=== PATIENT | male | born 1945 | race Caucasian/White ===

== ENCOUNTER 2016-12-21 18:06 | Emergency (ER) | payer MEDICARE, BC ==
[~2016-12-21] VITALS: Ht 180.3 cm; Wt 65.0 kg
[~2016-12-21 18:06] MED LIST: CYMB60CA PO; DIOV160T3 PO; JANU50TA9 PO; LANTUSP SQ; STOO100C PO; TYLE3 PO; VYTO10TA35 PO; [UNRECOGNIZED DRUG - OTHER]
[2016-12-21 18:08] VITALS: BP 137/85; PULSE 104; RESP 16; TEMP 97.4; O2SAT 99
[2016-12-21] MEDS ORDERED: SODIUM CHLOR 0.9% 1000 ML INJ 1,000 ML IV SCH (19:19)
[2016-12-21] MEDS ORDERED: SODIUM CHLORIDE 0.9% FLUSH 5 ML FLUSH IVF PRN (19:30)
[2016-12-21] MEDS ORDERED: ONDANSETRON HCL 4 MG/2 ML VIAL IVP ONE (19:30)
[2016-12-21] MEDS ORDERED: MORPHINE SULFATE 4 MG/ML INJ IV PUSH ONE (19:30)
--- NOTE | 2016-12-21 19:30 | PD ---
HPI . Abdominal pain Chief Complaint: GI Complaint Time Seen by Provider: 19:19 Travel History International Travel<30 days: No Contact w/Intl Traveler<30days: No Traveled to known affect area: No History of Present Illness HPI Patient presents with acute exacerbation of chronic abdominal pain. He reports that he's been having abdominal pain for 7 years. This been worse for the last couple days. He reports the passage of lack and or bloody stools. Last couple days. He denies any vomiting or fever. He does admit to decreased appetite. He further reports that his dose has been too high to register. He is a diabetic on insulin. He also reports polyuria and polydipsia. The patient underwent colostomy because of chronic anal pain and spasm. He reports continued anal pain and spasm despite surgery. [id number]: Diffuse abdomen SEVERITY: 10 out of 10 DURATION: Ongoing for 7 years TIMING: Worse 2 days CONTEXT: Chronic colostomy ASSOCIATED SYMPTOMS: Hyperglycemia PFSH Past Medical History Blood Disorders: No Cancer: No Cardiovascular Problems: Yes High Cholesterol: Yes Diabetes: Yes Diminished Hearing: No Endocrine: Yes Genitourinary: No Hypertension: Yes Immune Disorder: No Implanted Vascular Access Dvce: No Kidney Stones: Yes Musculoskeletal: No Neurologic: No Psychiatric: No Reproductive: No Respiratory: No Integumentary: Yes (GI Bleeding; Frequent UTI's) Renal Failure: Yes PNEUMOCCOCAL Vaccine (Year): 2 Past Surgical History Abdominal Surgery: Yes (colostomy due to abd pain AND HERNIA REPAIR) Genitourinary Surgery: Yes (LITHOTRIPSY) Tonsillectomy: Yes Other Surgery: Yes Social History Alcohol Use: Yes (OCCASIONALLY) Tobacco Use: Yes (1 PACK A DAY) Substance Use: No Allergies-Medications (Allergen,Severity, Reaction): Coded Allergies: No Known Allergies (Verified , 11/10/14) Reported Meds & Prescriptions Reported Meds & Active Scripts Active Reported Cymbalta DR (Duloxetine HCl) 60 Mg Capdr 60 Mg PO DAILY Lantus Inj (Insulin Glargine) 1,000 Unit/10 Ml Vial 40 Units SQ BID Review of Systems Except as stated in HPI: all other systems reviewed are Neg General / Constitutional: No: Fever, Chills Cardiovascular: No: Chest Pain or Discomfort Respiratory: No: Shortness of Breath Gastrointestinal: Positive: Abdominal Pain, Hematochezia, Other (white stools) , No: Nausea, Vomiting, Diarrhea Endocrine: Positive: Polyuria, Polydipsia Physical Exam Narrative GENERAL: Thin, chronically ill-appearing, very amaya man. SKIN: Warm and dry. Good turgor. HEAD: Atraumatic. Normocephalic. EYES: Pupils equal and round. Extraocular movements are intact. ENT: No nasal bleeding or discharge. Mucous membranes pink and moist. NECK: Trachea midline. Neck is supple. CARDIOVASCULAR: Regular rate and rhythm. Heart sounds are normal. RESPIRATORY: No accessory muscle use. Lungs are clear with full air movement throughout. GASTROINTESTINAL: Abdomen soft, non-tender, nondistended. Colostomy bag in place. Scant brown stool from the stoma. Some irritation of the stoma. It does Hemoccult positive but it is unclear if this is because of stomal irritation or from the stool itself. MUSCULOSKELETAL: No obvious deformities. No edema. NEUROLOGICAL: Awake and alert. No obvious cranial nerve deficits. Motor grossly within normal limits. Normal speech. PSYCHIATRIC: Appropriate mood and affect; insight and judgment normal. Data Data Last Documented VS Vital Signs Date Time Temp Pulse Resp B/P Pulse Ox O2 Delivery O2 Flow Rate FiO2 12/21/16 21:00 18 98 Room Air 12/21/16 18:08 97.4 104 137/85 Orders Complete Blood Count With Diff (12/21/16 19:19) Comprehensive Metabolic Panel (12/21/16 19:19) Lipase (12/21/16 19:19) Lactic Acid (12/21/16 19:19) Prothrombin Time / Inr (Pt) (12/21/16 19:19) Act Partial Throm Time (Ptt) (12/21/16 19:19) Urinalysis - C+S If Indicated (12/21/16 19:19) Iv Access Insert/Monitor (12/21/16 19:19) Ecg Monitoring (12/21/16 19:19) Oximetry (12/21/16 19:19) Morphine Inj (Morphine Inj) (12/21/16 19:30) Ondansetron Inj (Zofran Inj) (12/21/16 19:30) Sodium Chlor 0.9% 1000 Ml Inj (Ns 1000 M (12/21/16 19:19) Sodium Chloride 0.9% Flush (Ns Flush) (12/21/16 19:30) Electrocardiogram (12/21/16 19:19) Oral Contrast - Adult (12/21/16 19:26) Insulin Human Regular Inj (Novolin R Inj (12/21/16 22:00) Diatrizoate Liq ( Gastrodavid Liq) (12/21/16 23:59) Ct Abd/Pel W Iv Contrast(Rout) (12/22/16 ) Iodixanol 320 Inj (Rad Ct) (Visipaque 32 (12/22/16 02:10) Labs Laboratory Tests Test 12/21/16 12/21/16 19:20 19:30 White Blood Count 8.5 TH/MM3 Red Blood Count 5.22 MIL/MM3 Hemoglobin 16.3 GM/DL Hematocrit 46.9 % Mean Corpuscular Volume 89.9 FL Mean Corpuscular Hemoglobin 31.2 PG Mean Corpuscular Hemoglobin 34.7 % Concent Red Cell Distribution Width 13.1 % Platelet Count 233 TH/MM3 Mean Platelet Volume 9.2 FL Neutrophils (%) (Auto) 75.7 % Lymphocytes (%) (Auto) 16.3 % Monocytes (%) (Auto) 6.5 % Eosinophils (%) (Auto) 0.9 % Basophils (%) (Auto) 0.6 % Neutrophils # (Auto) 6.4 TH/MM3 Lymphocytes # (Auto) 1.4 TH/MM3 Monocytes # (Auto) 0.5 TH/MM3 Eosinophils # (Auto) 0.1 TH/MM3 Basophils # (Auto) 0.1 TH/MM3 CBC Comment DIFF FINAL Differential Comment Prothrombin Time 10.0 SEC Prothromb Time International 0.9 RATIO Ratio Activated Partial 27.1 SEC Thromboplast Time Sodium Level 132 MEQ/L Potassium Level 4.2 MEQ/L Chloride Level 92 MEQ/L Carbon Dioxide Level 27.9 MEQ/L Anion Gap 12 MEQ/L Blood Urea Nitrogen 37 MG/DL Creatinine 1.70 MG/DL Estimat Glomerular Filtration 40 ML/MIN Rate Random Glucose 537 MG/DL Calcium Level 9.3 MG/DL Total Bilirubin 0.4 MG/DL Aspartate Amino Transf 24 U/L (AST/SGOT) Alanine Aminotransferase 31 U/L (ALT/SGPT) Alkaline Phosphatase 111 U/L Total Protein 7.6 GM/DL Albumin 4.2 GM/DL Lipase 635 U/L Urine Color LIGHT-YELLOW Urine Turbidity CLEAR Urine pH 5.0 Urine Specific [place] 1.023 Urine Protein 30 mg/dL Urine Glucose (UA) 1000 mg/dL Urine Ketones NEG mg/dL Urine Occult Blood NEG Urine Nitrite NEG Urine Bilirubin NEG Urine Urobilinogen LESS THAN 2.0 MG/DL Urine Leukocyte Esterase NEG Urine RBC LESS THAN 1 /hpf Microscopic Urinalysis Comment CULT NOT INDICATED Lactic Acid Level 1.2 mmol/L MDM Medical Decision Making Medical Screen Exam Complete: Yes Emergency Medical Condition: Yes Medical Record Reviewed: Yes (patient actually hasn't been here a couple of years. Medical history significant for COPD, diabetes, hypertension, hyperlipidemia and chronic anal pain and spasm and colostomy) Interpretation(s) EKG shows a sinus rhythm. No ST segment elevation or depression. Differential Diagnosis Differential diagnosis of abdominal pain includes but is not limited to gastritis, pancreatitis, hepatitis, gastroenteritis, gallbladder disease, constipation, urinary retention, UTI, peptic ulcer disease, diverticulitis or appendicitis Narrative Course Patient presents complaining with abdominal pain and black or bloody stools for the last several days. He appears hemodynamically stable at this time. He also reports hyperglycemia. CBC & BMP Diagram 12/21/16 19:20 Liver function studies are normal. Lipase is 635. Lactic acid is 1.2. UA is positive for glucose. No evidence of infection. Last Impressions Abdomen/Pelvis CT 12/22/16 0000 Signed Impressions: Service Date/Time: December 01:36 - CONCLUSION: 1. 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 The parastomal hernia is new when compared to the prior study of 2010. 2. Calcifications in the region of the pancreatic duct. 3. Nonobstructing renal calculi. 4. No evidence of bowel dilatation. 5. Enlarged prostate. 6. Degenerative findings lumbar spine. Roel Pleitez MD I'm not really finding anything acutely wrong with this patient. He has been resting comfortably while awaiting his workup. I really don't think that he needs hospital admission at this time. Diagnosis Primary Impression: Pancreatitis Qualified Code: K85.90 - Acute pancreatitis, unspecified complication status, unspecified pancreatitis type Additional Impression: Hyperglycemia Patient Instructions: Colostomy Care (DC), Diabetic Hyperglycemia (DC), General Instructions Disposition: 01 DISCHARGE HOME Condition: Stable Yessica Almonte MD Dec 21, 2016 19:30
[2016-12-21] MEDS ORDERED: LANTUS2P SQ (19:47)
[2016-12-21] MEDS ORDERED: CYMB60CA PO (19:49)
[2016-12-21 19:58] LABS: BLOOD, URINE NEG (NEG); GLUCOSE,URINE 1000 mg/dL (NEG); KETONE, URINE NEG (NEG); NITRITE,URINE NEG (NEG); URINE COLOR LIGHT-YELLOW (YELLW/STRAW)
[2016-12-21 20:03] LABS: COMMENT (UR) CULT NOT INDICATED; CULTURE IF INDICATED CULT NOT INDICATED
[2016-12-21 21:00] VITALS: RESP 18; O2SAT 98
[2016-12-21 21:11] LABS: AUTOMATED NEUTROPHIL # 6.4 TH/MM3 (1.8-7.7); BASOPHIL # 0.1 TH/MM3 (0-0.2); BASOPHIL % 0.6 % (0.0-2.0); EOSINOPHIL # 0.1 TH/MM3 (0-0.4); EOSINOPHIL % 0.9 % (0.0-4.0); HEMATOCRIT 46.9 % (39.0-51.0); HEMO FLAGS DIFF FINAL; LYMPH % 16.3 % (9.0-44.0); LYMPHOCYTE # 1.4 TH/MM3 (1.0-4.8); MEAN CELL VOLUME 89.9 FL (80.0-100.0); MEAN CORPUSCULAR HEMOGLOBIN 31.2 PG (27.0-34.0); MEAN CORPUSCULAR HGB CONC 34.7 % (32.0-36.0); MONO % 6.5 % (0.0-8.0); NEUT % 75.7 % (16.0-70.0); PLATELET COUNT 233 TH/MM3 (150-450); RED BLOOD COUNT 5.22 MIL/MM3 (4.50-5.90); RED CELL DISTRIBUTION WIDTH 13.1 % (11.6-17.2); WHITE BLOOD COUNT 8.5 TH/MM3 (4.0-11.0)
[2016-12-21 21:24] LABS: APTT (PATIENT) 27.1 SEC (24.3-30.1); INTERNATIONAL NORMALIZED RATIO 0.9 RATIO
[2016-12-21 21:32] LABS: ALKALINE PHOSPHATASE 111 U/L (45-117); ALT (GPT) 31 U/L (12-78); ANION GAP 12 MEQ/L (5-15); AST (GOT) 24 U/L (15-37); BICARBONATE 27.9 MEQ/L (21.0-32.0); BLOOD UREA NITROGEN 37 MG/DL (7-18); CHLORIDE 92 MEQ/L (98-107); GLOMERULAR FILTRATION RATE 40 ML/MIN (>89); POTASSIUM 4.2 MEQ/L (3.5-5.1); SODIUM (NA) 132 MEQ/L (136-145); TOTAL BILIRUBIN ADULT 0.4 MG/DL (0.2-1.0)
[2016-12-21] MEDS ORDERED: INSULIN HUMAN REGULAR 1,000 UNITS/10 ML VIAL IV PUSH ONE (22:00)
[2016-12-21] MEDS ORDERED: DIATRIZOATE MEGLUM/DIATRIZOATE SOD 9 ML CUP ONE (23:59)
[2016-12-22] MEDS ORDERED: IODIXANOL 320 MG/ML 10 ML VIAL (for Rad CT) IV ONE (02:10)
--- NOTE | 2016-12-22 02:25 | RADRPT ---
EXAM DATE/TIME: 12/22/2016 01:36 [facility] COMPARISON: CT ABDOMEN & PELVIS W CONTRAST, October 03, 2011, 17:29. INDICATIONS : Abdominal and back pain, blood in stool. IV CONTRAST: 46 cc Visipaque (iodixanol) IV ORAL CONTRAST: Prescribed oral contrast ingested. RADIATION DOSE: 9.96 CTDIvol (mGy) MEDICAL HISTORY : Cardiovascular disease. Hypertension. diabetes SURGICAL HISTORY : abdominal surgery ENCOUNTER: Initial ACUITY: 1 day PAIN SCALE: 8/10 LOCATION: abdomen TECHNIQUE: Volumetric scanning of the abdomen and pelvis was performed. Using automated exposure control and ad justment of the mA and/or kV according to patient size, radiation dose was kept as low as reasonably achievable to obtain optimal diagnostic quality images. FINDINGS: LOWER LUNGS: The visualized lower lungs are clear. LIVER: Homogeneous density without lesion. There is no dilation of the biliary tree. No calcified gallston es. SPLEEN: Normal size without lesion. PANCREAS: Calcifications in the region of the pancreatic head. Several calcifications are in the region of the distal pancreatic duct measuring up to 3 mm in diameter. Pancreatic duct is mildly prominent in diame ter in the pancreatic head. Pancreas otherwise within normal limits. KIDNEYS: 2 mm calculus in the upper pole of the right kidney. 4 mm calculus in the lower pole the left kidney. No evidence of hydronephrosis. Calcification in the right renal hilum is likely arterial. ADRENAL GLANDS: Within normal limits. VASCULAR: Diffuse aortic calcification. Aortic diameter are within normal limits. BOWEL/MESENTERY: Scattered colonic diverticula. Status post colostomy with stoma is identified in the left lower quadr ant. Parastomal hernia noted. No evidence of bowel dilatation. No free air or free fluid. Appendix wi thin normal limits. RETROPERITONEUM: There is no lymphadenopathy. BLADDER: No wall thickening or mass. REPRODUCTIVE: Prostate enlarged measuring 4.6 cm. INGUINAL: There is no lymphadenopathy or hernia. MUSCULOSKELETAL: Prominent degenerative findings of the lumbar spine. Several scattered sclerotic foci in the lumbar s pine and bony pelvis unchanged indicating bone islands. CONCLUSION: 1. 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 The parastom al hernia is new when compared to the prior study of 2010. 2. Calcifications in the region of the pancreatic duct. 3. Nonobstructing renal calculi. 4. No evidence of bowel dilatation. 5. Enlarged prostate. 6. Degenerative findings lumbar spine. Roel Pleitez MD on December 22, 2016 at 2:13 Board Certified Radiologist. This report was verified electronically.
[2016-12-22] MEDS ORDERED: TYLETAB34 PO (03:41)
--- NOTE | 2016-12-22 13:56 | EKG ---
Date Performed: 12/21/2016 Time Performed: 21:28:13 PTAGE: 71 years EKG: Sinus rhythm POSSIBLE INFERIOR MYOCARDIAL INFARCTION BORDERLINE ECG PREVIOUS TRACING : 01/06/2011 14.17 DOCTOR: Dwayne Jones Interpretating Date/Time 12/22/2016 13:51:34
== END 2016-12-22 03:57 | disposition home or self-care (01) ==
LOC: NEPC 18:06
DX: K85.90 Acute pancreatitis without necrosis or infection, unspecified (principal); E11.65 Type 2 diabetes mellitus with hyperglycemia; Z79.4 Long term (current) use of insulin; I10 Essential (primary) hypertension; F17.210 Nicotine dependence, cigarettes, uncomplicated
CPT/HCPCS: 74177; 80053; 81001; 83605; 83690; 85025; 85610; 85730; 93005; 96361; 96374; 96375; 99284; J1815; J2270; J2405; J7030; Q9963; Q9967